=== PATIENT | male | born 1990 | race Caucasian/White ===

== ENCOUNTER 2018-07-03 19:53 | Emergency (ER) | payer MEDICAID ==
[~2018-07-03] VITALS: Ht 190.5 cm; Wt 104.3 kg
--- NOTE | 2018-07-03 19:59 | NUR ---
Tonny leiva in EDM - 07/03/18 at 2009 by [email or web address] Patient to [facility] 5 to [facility] for evaluation. Side rails up. Report received from TANIA Dya.
--- NOTE | 2018-07-03 19:59 | NUR ---
Patient to ER bed 05 to gown for evaluation. Side rails up. Report given to BUSTER MARIN.
[2018-07-03 20:04] VITALS: BP_SYST 187
--- NOTE | 2018-07-03 20:05 | NUR ---
Pt complains of "stabbing lower back pain that shoots an electrical pain down my right leg." Pt states he has been feeling this pain for about a week and a half. Pt denies trauma, stating I was picking up something at work and might have twisted wrong. Pt denies N/V. Pt took ibuprofen and tylenol with no relief. Pt is able to ambulate but pain worsens with movement. NO other injuries/complaints per patient or noted.
--- NOTE | 2018-07-03 20:25 | NUR ---
ER Dr. Kerns at bedside examining patient.
[2018-07-03] MEDS ORDERED: fentaNYL CITRATE/PF 100 MCG/2 ML AMP IM ONE ×2 (20:45→21:45)
[2018-07-03] MEDS ORDERED: TRIAMCINOLONE ACETONIDE 40 MG/ML IM ONE (20:45)
--- NOTE | 2018-07-03 21:00 | NUR ---
Medications were given, pt tolerated well. No adverse reaction, will continue to monitor.
--- NOTE | 2018-07-03 21:08 | NUR ---
Pt went to radiology in stable condition.
--- NOTE | 2018-07-03 21:20 | NUR ---
Pt returned from radiology in stable condition.
[2018-07-03] MEDS ORDERED: DIPHENHYDRAMINE INJ 50 MG/ML VIAL IM ONE (21:45)
[2018-07-03 22:46] VITALS: BP_SYST 141
--- NOTE | 2018-07-03 22:46 | NUR ---
Patient given written and verbal discharge instructions and verbalizes understanding. ER MD discussed with patient the results and treatment provided. Patient in stable condition. ID arm band removed. Rx of [place] and Ibuprofen given. Patient educated on pain management and to follow up with PMD. Pain Scale 2. Opportunity for questions provided and answered. Medication side effect fact sheet provided.
== END 2018-07-03 22:46 | disposition home or self-care (01) ==
LOC: SED 19:53
DX: M54.5 Low back pain (principal); M25.561 Pain in right knee; M79.671 Pain in right foot; R03.0 Elevated blood-pressure reading, without diagnosis of hypertension
CPT/HCPCS: 72131; 96372; 99284; J1200; J3010; J3301

== ENCOUNTER 2019-04-27 12:53 | Emergency (ER) | payer MEDICAID ==
[~2019-04-27] VITALS: Ht 193 cm; Wt 111.1 kg
[2019-04-27 13:32] VITALS: BP_SYST 155
--- NOTE | 2019-04-27 13:36 | NUR ---
Patient triaged and placed in waiting room. VSS and patient appears in no acute distress at this time. Accompanied by VISITOR, awaiting available bed, and MD notified of need for MSE.
--- NOTE | 2019-04-27 16:05 | NUR ---
Called for patient, unable to locate.
--- NOTE | 2019-04-27 16:16 | NUR ---
Called for patient, unable to locate.
--- NOTE | 2019-04-27 16:39 | NUR ---
Called for patient. Unable to locate to locate patient, presumed to have LWBS.
== END 2019-04-27 19:39 | disposition left against medical advice (07) ==
LOC: SED 12:53
DX: R10.9 Unspecified abdominal pain (principal); Z53.21 Procedure and treatment not carried out due to patient leaving prior to being seen by health care provider

== ENCOUNTER 2020-09-18 16:22 | Emergency (ER) | payer MEDICAID ==
[~2020-09-18] VITALS: Ht 190.5 cm; Wt 108.9 kg
[2020-09-18 16:30] VITALS: BP_SYST 155
[2020-09-18] MEDS ORDERED: KETOROLAC TROMETHAMINE 60 MG/2 ML VIAL IM ONE (16:30)
[2020-09-18] MEDS ORDERED: MORPHINE 4 MG/ML INJ. SYRINGE IM ONE (17:15)
[2020-09-18 18:29] VITALS: BP_SYST 158
== END 2020-09-18 18:29 | disposition home or self-care (01) ==
LOC: SED 16:22
DX: M54.5 Low back pain (principal)
CPT/HCPCS: 96372; 99284; J1885; J2270